=== PATIENT | female | born 1985 | race Caucasian/White ===

== ENCOUNTER 2017-10-25 16:30 | Emergency (ER) | payer OTHER ==
[~2017-10-25] VITALS: Ht 162.6 cm; Wt 59.0 kg
[2017-10-25] MEDS ORDERED: ACYCLOVIR 400400 MG PO (17:06)
[2017-10-25] MEDS ORDERED: KEFLEX500 M1 PO (17:06)
[2017-10-25] MEDS ORDERED: NORCO 5-325 TA1 EACH PO (17:06)
[2017-10-25 17:23] VITALS: BP 167/97
== END 2017-10-25 17:24 | disposition home or self-care (01) ==
LOC: M.ERS 16:30
DX: R21 Rash and other nonspecific skin eruption (principal); Z88.6 Allergy status to analgesic agent

== ENCOUNTER 2018-01-13 20:59 | Emergency (ER) | payer OTHER ==
[~2018-01-13] VITALS: Ht 162.6 cm; Wt 54.4 kg
[~2018-01-13 20:59] MED LIST: ACYCLOVIR 400400 MG PO; KEFLEX500 M1 PO; NORCO 5-325 TA1 EACH PO
[2018-01-13 21:23] LABS: ABSOLUTE EOSINOPHILS 0.1 thou/uL (0.0-0.7); ABSOLUTE LYMPHOCYTES 1.7 thou/uL (0.8-5.3); ABSOLUTE MONOCYTES 0.6 thou/uL (0.0-1.2); ABSOLUTE NEUTROPHILS 3.5 thou/uL (1.6-8.1); BASOPHILS 0.4 %; EOSINOPHILS 1.6 %; HEMATOCRIT 39.9 % (37.0-47.0); HEMOGLOBIN 13.6 gm/dL (12.0-15.0); LYMPHOCYTES 29.1 %; MCH 32.6 pg (26.0-34.0); MONOCYTES 10.3 %; MPV 7.5 fl. (7.2-11.1); NUCLEATED RBCS 0 /100WBC; PLATELET COUNT* 228 thou/uL (150-400); POLYS 58.6 %; RBC 4.16 mil/uL (4.20-5.00); WBC 5.9 thou/uL (4.0-11.0)
[2018-01-13 21:32] LABS: CALCIUM 8.5 mg/dL (8.5-10.1); POTASSIUM 3.7 mmol/L (3.5-5.1); URINE BILIRUBIN NEGATIVE (Negative); URINE BLOOD NEGATIVE (Negative); URINE CLARITY CLEAR; URINE COLOR YELLOW; URINE GLUCOSE-RANDOM NEGATIVE (Negative); URINE KETONES NEGATIVE (Negative); URINE LEUKOCYTES NEGATIVE (Negative); URINE NITRITE NEGATIVE (Negative); URINE PROTEIN NEGATIVE (Negative); URINE SPECIFIC GRAVITY >= 1.030 (1.005-1.030); URINE UROBILINOGEN 0.2 E.U./dl (0.2-1.0)
[2018-01-13 21:35] LABS: INR 1.1; PROTIME 10.3 Seconds (9.20-11.50)
[2018-01-13 21:36] LABS: ALBUMIN 3.5 g/dL (3.4-5.0); TOTAL BILIRUBIN 0.1 mg/dL (<0.1-1.0)
[2018-01-13] MEDS ORDERED: BENTYL 20 MG TA20 M1 PO (22:40)
[2018-01-13] MEDS ORDERED: PROMS25 WY RECTAL (22:40)
[2018-01-13 23:02] VITALS: BP 102/72
== END 2018-01-13 23:15 | disposition home or self-care (01) ==
LOC: M.ERS 20:59
PROVIDERS: Physician Assistant
DX: R11.2 Nausea with vomiting, unspecified (principal); R19.7 Diarrhea, unspecified; R10.9 Unspecified abdominal pain; Z88.6 Allergy status to analgesic agent

== ENCOUNTER 2018-05-08 10:35 | Emergency (ER) | payer OTHER ==
[~2018-05-08] VITALS: Ht 162.6 cm; Wt 60.8 kg
[~2018-05-08 10:35] MED LIST changes: +BENTYL 20 MG TA20 M1 PO; +PROMS25 WY RECTAL
[2018-05-08] MEDS ORDERED: AMOXICILLIN 50500 MG PO (10:50)
[2018-05-08 11:20] LABS: ABSOLUTE EOSINOPHILS 0.1 thou/uL (0.0-0.7); ABSOLUTE LYMPHOCYTES 1.3 thou/uL (0.8-5.3); ABSOLUTE MONOCYTES 0.4 thou/uL (0.0-1.2); ABSOLUTE NEUTROPHILS 4.7 thou/uL (1.6-8.1); BASOPHILS 0.3 %; EOSINOPHILS 1.3 %; HEMOGLOBIN 13.2 gm/dL (12.0-15.0); LYMPHOCYTES 19.9 %; MCH 32.6 pg (26.0-34.0); MCHC 33.9 g/dL (28.0-37.0); MCV 96.1 fL (80.0-100.0); MONOCYTES 6.7 %; MPV 8.1 fl. (7.2-11.1); NUCLEATED RBCS 0 /100WBC; PLATELET COUNT* 232 thou/uL (150-400); POLYS 71.8 %; RBC 4.06 mil/uL (4.20-5.00); RDW-CV 12.9 % (10.5-14.5); WBC 6.6 thou/uL (4.0-11.0)
[2018-05-08 11:21] LABS: URINE BILIRUBIN NEGATIVE (Negative); URINE BLOOD NEGATIVE (Negative); URINE CLARITY CLEAR; URINE COLOR DARK YELLOW; URINE GLUCOSE-RANDOM NEGATIVE (Negative); URINE KETONES NEGATIVE (Negative); URINE LEUKOCYTES NEGATIVE (Negative); URINE NITRITE NEGATIVE (Negative); URINE PROTEIN NEGATIVE (Negative); URINE SPECIFIC GRAVITY >= 1.030 (1.005-1.030); URINE UROBILINOGEN 0.2 E.U./dl (0.2-1.0)
[2018-05-08 11:24] LABS: CREATININE 0.5 mg/dL (0.6-1.3); POTASSIUM 3.8 mmol/L (3.5-5.1)
[2018-05-08 11:28] LABS: ALBUMIN 3.6 g/dL (3.4-5.0); TOTAL BILIRUBIN 0.2 mg/dL (<0.1-1.0); TOTAL PROTEIN 6.9 g/dL (6.4-8.2)
[2018-05-08] MEDS ORDERED: ZOFRAN ODT4 MG PO (13:53)
[2018-05-08] MEDS ORDERED: NORCO 5-325 TA1 EACH PO (13:53)
[2018-05-08] MEDS ORDERED: BENTYL 20 MG TA20 M1 PO (13:53)
[2018-05-08 14:42] VITALS: BP 103/66
== END 2018-05-08 14:44 | disposition home or self-care (01) ==
LOC: M.ERS 10:35
DX: R19.7 Diarrhea, unspecified (principal); R10.31 Right lower quadrant pain; R11.2 Nausea with vomiting, unspecified; F17.210 Nicotine dependence, cigarettes, uncomplicated; Z88.6 Allergy status to analgesic agent

== ENCOUNTER 2018-11-26 22:12 | Emergency (ER) | payer OTHER ==
[~2018-11-26] VITALS: Ht 162.6 cm; Wt 61.2 kg
[~2018-11-26 22:12] MED LIST changes: +AMOXICILLIN 50500 MG PO; +ZOFRAN ODT4 MG PO
[2018-11-26] MEDS ORDERED: MIRENA1 EACH (22:25)
[2018-11-27] MEDS ORDERED: IBUPROFEN 800800 MG PO (00:40)
[2018-11-27] MEDS ORDERED: ROBAXIN 750 MG750 M1 PO (00:40)
[2018-11-27] MEDS ORDERED: NORCO 5-325 TA1 EACH PO (00:40)
[2018-11-27 00:45] VITALS: BP 140/90
== END 2018-11-27 00:50 | disposition home or self-care (01) ==
LOC: M.ERS 22:12
DX: S16.1XXA Strain of muscle, fascia and tendon at neck level, initial encounter (principal); M54.9 Dorsalgia, unspecified; F17.210 Nicotine dependence, cigarettes, uncomplicated; Z88.6 Allergy status to analgesic agent; V49.49XA Driver injured in collision with other motor vehicles in traffic accident, initial encounter; Y93.89 Activity, other specified; Y92.89 Other specified places as the place of occurrence of the external cause; Y99.8 Other external cause status

== ENCOUNTER 2020-03-13 14:54 | Emergency (ER) | payer OTHER, MEDICAID ==
[~2020-03-13] VITALS: Ht 162.6 cm; Wt 63.5 kg
[~2020-03-13 14:54] MED LIST changes: +IBUPROFEN 800800 MG PO; +MIRENA1 EACH; +ROBAXIN 750 MG750 M1 PO
[2020-03-13] MEDS ORDERED: LEXAPRO5 MG PO (15:02)
[2020-03-13] MEDS ORDERED: CLONAZEPAM 0.50.5 M1 PO (15:03)
[2020-03-13] MEDS ORDERED: RISPERDAL2 MG PO (15:06)
[2020-03-13] MEDS ORDERED: NAPROSYN500 MG PO (15:25)
[2020-03-13] MEDS ORDERED: NORCO 5-325 TA1 EAC1 PO (15:25)
[2020-03-13 15:45] VITALS: BP 132/86
== END 2020-03-13 15:47 | disposition home or self-care (01) ==
LOC: M.ERS 14:54
DX: S02.5XXA Fracture of tooth (traumatic), initial encounter for closed fracture (principal); K08.89 Other specified disorders of teeth and supporting structures; F17.210 Nicotine dependence, cigarettes, uncomplicated; Z79.899 Other long term (current) drug therapy; X58.XXXA Exposure to other specified factors, initial encounter; Y93.9 Activity, unspecified; Y92.89 Other specified places as the place of occurrence of the external cause; Y99.8 Other external cause status